=== PATIENT | male | born 1940 | race Caucasian/White ===

== ENCOUNTER → 2017-10-15 | Outpatient (CLI) | payer MEDICARE | END | disposition home or self-care (01) | LOC: LAB SHORT 07:37 → PLD 07:37 | DX: D11.0 Benign neoplasm of parotid gland (principal) | CPT/HCPCS: 88173 ==

== ENCOUNTER 2017-12-31 06:50 | Day surgery (SDC) | payer MEDICARE ==
[~2017-12-31] VITALS: Ht 165.1 cm; Wt 93.1 kg
[~2017-12-31 06:50] MED LIST: ALBU90OI; AMLO5; ASPI81CH; FISH OIL 1,0001 EAC1; Glucosamine Ch1 EAC4; Hair, Skin & N1 EACH; LOSARTAN-HCTZ1 EAC2
== END 2017-12-31 14:04 | disposition home or self-care (01) ==
LOC: ORSCSDS 06:50
PROVIDERS: Otolaryngology
PROC: 0CB80ZZ Excision of Right Parotid Gland, Open Approach (ICD-10-PCS; principal; 2017-12-31 08:15)
PROC: 00BM0ZZ Excision of Facial Nerve, Open Approach (ICD-10-PCS; principal; 2017-12-31 08:15)
DX: D11.0 Benign neoplasm of parotid gland (principal); L72.0 Epidermal cyst; I10 Essential (primary) hypertension; F17.210 Nicotine dependence, cigarettes, uncomplicated; Z79.82 Long term (current) use of aspirin; Z79.899 Other long term (current) drug therapy
CPT/HCPCS: 88305; J0171; J0330; J1100; J2250; J2370; J2405; J3010; J7120

== ENCOUNTER 2018-07-08 11:28 | Day surgery (SDC) | payer MEDICARE ==
[~2018-07-08] VITALS: Ht 165.1 cm; Wt 94.2 kg
--- NOTE | 2018-07-08 12:15 | NUR ---
07/08/18 1215 Alexia Canada 1 IV MISS IN RH BY SIMON VALVE 1 GOOD IV IN RH BY SIMON PT TOW
--- NOTE | 2018-07-08 13:57 | NUR ---
07/08/18 1357 Katelynn Mckay 13ML NORMAL SALINE USED TO ELEVATE TRANSVERSE COLON POLYPS
== END 2018-07-08 14:24 | disposition home or self-care (01) ==
LOC: ORSCSDS 11:28
PROVIDERS: Internal Medicine Gastroenterology
PROC: 0DBL8ZX Excision of Transverse Colon, Via Natural or Artificial Opening Endoscopic, Diagnostic (ICD-10-PCS; principal; 2018-07-08 12:45)
DX: Z12.11 Encounter for screening for malignant neoplasm of colon (principal); K57.30 Diverticulosis of large intestine without perforation or abscess without bleeding; I10 Essential (primary) hypertension; K64.8 Other hemorrhoids; F17.210 Nicotine dependence, cigarettes, uncomplicated; Z79.82 Long term (current) use of aspirin; Z79.899 Other long term (current) drug therapy
CPT/HCPCS: 88305; J7120

== ENCOUNTER 2021-08-06 12:03 | Day surgery (SDC) | payer MEDICARE ==
[~2021-08-06] VITALS: Ht 165.1 cm; Wt 90.2 kg
[~2021-08-06 12:03] MED LIST changes: +ALLERTEC PO; -AMLO5; +AMLO5 PO; -ASPI81CH; +ASPI81CH PO; +ATOR10 PO; +HYDCHL12.5 PO; +LOSA50 PO
[2021-08-06] MEDS ORDERED: OXYM.05NI (13:00)
--- NOTE | 2021-08-06 13:16 | NUR ---
History, Chart, Medications and Allergies reviewed before start of procedure.Patient confirms NPO status and agrees with scheduled surgery. Patient states colon prep results clear.LUNGS SOUNDS CONGESTED ON EXPERITION T/O.Patient States Post-Procedure ride home has been arranged WITH DAUGHTER
--- NOTE | 2021-08-06 14:31 | NUR ---
08/06/21 1431 Kellie Carlos History, Chart, Medications and Allergies reviewed before start of procedure. Patient confirms NPO status and agrees with scheduled surgery. 3-LEAD EKG REVIEWED WITH PHYSICIAN PRIOR TO START OF PROCEDURE. MONITOR INTACT WITH CONTINUOUS PULSE OXIMETRY AND INTERMITTENT BP. PATIENT DETERMINED TO BE ASA APPROPRIATE FOR PROPOFOL SEDATION PRIOR TO START OF PROCEDURE BY .
--- NOTE | 2021-08-06 16:16 | NUR ---
Discharge instructions reviewed with patient. Patient verbalizes understanding. Copy given to patient to take home. Discharged via wheelchair to private car for ride home.
== END 2021-08-06 16:18 | disposition home or self-care (01) ==
LOC: ORSCMMR 12:03 → ORSCSDS 12:45 → ORD 12:45 → ORSCSDS 13:30 → ORSCMMR 16:18
DX: Z12.11 Encounter for screening for malignant neoplasm of colon (principal); Z86.010 Personal history of colon polyps; D12.2 Benign neoplasm of ascending colon; D12.3 Benign neoplasm of transverse colon; D12.4 Benign neoplasm of descending colon; K62.1 Rectal polyp; K57.30 Diverticulosis of large intestine without perforation or abscess without bleeding; K64.4 Residual hemorrhoidal skin tags; F17.210 Nicotine dependence, cigarettes, uncomplicated; Z79.82 Long term (current) use of aspirin; Z79.899 Other long term (current) drug therapy
CPT/HCPCS: 88305; J2704; J7120

== ENCOUNTER 2023-02-18 09:14 | Day surgery (SDC) | payer MEDICARE ==
[~2023-02-18] VITALS: Ht 165.1 cm; Wt 94.7 kg
[~2023-02-18 09:14] MED LIST changes: +OXYM.05NI
--- NOTE | 2023-02-18 12:21 | NUR ---
02/18/23 1221 Jani Rey 0.1ML OF EPI 1MG/ML ADDED TO 20ML NACL TO CREATE A LOCAL SOLUTION OF NACL WITH EPI 1:200,000. 4MLS INJECTED PRIOR TO START OF THE CASE.
--- NOTE | 2023-02-18 14:24 | NUR ---
02/18/23 1424 Samantha Abel RN AUSCULTATED PT'S LUNGS NOTIFIED DR SOMERS OF BILATERAL WHEEZES, DR SOMERS ORDERED UPDRAFT. PT PAR WNL, WILL MOVE TO STEPDOWN ONCE UPDRAFT IS COMPLETE, PT AVINASH WELL.
[2023-02-18 14:58] VITALS: BP 120/81
--- NOTE | 2023-02-18 15:54 | NUR ---
02/18/23 6830 Krystal Goldstein DAUGHTER WAS AT CHAIRSIDE WITH PATIENT WHILE PATIENT IN STEP DOWN. PT GIVEN INCENTIVE SPIROMETER AND INSTRUCTED ON USE. VERBALIZES AGREEMENT TO USE INCENTIVE HOUR 10 TIMES EVERY HOUR WHILE AWAKE. PT VERBALIZES HE IS FAMILIAR WITH HOW TO DRAIN MIAH TUBES HIS LATE HAD 3 OF THEM THAT HE ASSISTED HER WITH. GIVEN MIAH DRAIN LOG SHEET AND INSTRUCTIONS. REPORTS PAIN AT INCISION AREA AT 3/10, TOLERABLE LEVEL AND PT WAS READY TO GO HOME.
== END 2023-02-18 15:36 | disposition home or self-care (01) ==
LOC: ORSCSDS 09:14
PROVIDERS: Otolaryngology
PROC: 0CB90ZZ Excision of Left Parotid Gland, Open Approach (ICD-10-PCS; principal; 2023-02-18 10:30)
DX: D11.0 Benign neoplasm of parotid gland (principal); F17.210 Nicotine dependence, cigarettes, uncomplicated; I10 Essential (primary) hypertension; Z79.899 Other long term (current) drug therapy; E66.9 Obesity, unspecified; Z68.34 Body mass index [BMI] 34.0-34.9, adult
CPT/HCPCS: 88307; A9270; J0171; J1100; J2371; J2405; J2704; J3010; J7120